=== PATIENT | female | born 1950 | race Caucasian/White ===

== ENCOUNTER 2022-09-27 08:44 | Day surgery (SDC) | payer MEDICARE, OTHER ==
[2022-09-26 11:29] LABS: BASOPHILS # (AUTO) 0.1 X10'3 (0-0.2); BASOPHILS % (AUTO) 1.3 % (0-1); EOSINOPHILS # (AUTO) 0.3 X10'3 (0-0.9); EOSINOPHILS % (AUTO) 3.8 % (0-6); HEMATOCRIT 43.6 % (35.0-45.0); HEMOGLOBIN 14.7 g/dl (12.0-16.0); LYMPHOCYTES # (AUTO) 1.3 X10'3 (1.1-4.8); LYMPHOCYTES % (AUTO) 17.4 % (21-51); MEAN CORPUSCULAR HEMOGLOBIN 30.4 PG (27.0-31.0); MEAN CORPUSCULAR HGB CONC 33.7 g/dL (33.0-36.5); MEAN CORPUSCULAR VOLUME 90.2 FL (78-98); MEAN PLATELET VOLUME 8.4 FL (7.4-10.4); MONOCYTES # (AUTO) 0.5 X10'3 (0-0.9); MONOCYTES % (AUTO) 6.7 % (2-12); NEUTROPHILS # (AUTO) 5.2 X10'3 (1.8-7.7); NEUTROPHILS % (AUTO) 70.8 % (42-75); PLATELET COUNT 273 X10'3 (140-440); RED BLOOD COUNT 4.84 X10'6 (4.20-5.60); RED CELL DISTRIBUTION WIDTH 12.5 % (11.5-14.5); WHITE BLOOD COUNT 7.4 X10'3 (4.5-11.0)
[2022-09-26 12:00] LABS: APTT 26 SECONDS (22-32); PROTHROMBIN TIME 10.3 SECONDS (9.0-12.0)
[2022-09-26 12:13] LABS: ALANINE AMINOTRANSFERASE 31 U/L (12-78); ALBUMIN 3.5 G/DL (3.4-5.0); ALKALINE PHOSPHATASE 63 IU/L (46-116); ANION GAP 10 (8-16); ASPARTATE AMINO TRANSFERASE 21 U/L (10-37); BILIRUBIN,TOTAL 0.5 MG/DL (0.1-1.0); BLOOD UREA NITROGEN 18 MG/DL (7-18); BUN/CREATININE RATIO 23.7 (10.0-20.0); CHLORIDE 105 MMOL/L (99-107); CREATININE 0.76 MG/DL (0.40-0.90); GLUCOSE 136 MG/DL (70-104); POTASSIUM 3.9 MMOL/L (3.5-5.1); SODIUM 140 MMOL/L (135-145); TOTAL CARBON DIOXIDE 25.1 MMOL/L (24-32); eGFR 75 ML/MIN
[2022-09-27] VITALS (12 sets, daily range): BP systolic 135–178; BP diastolic 65–94; PULSE 68–84; RESP 14–17; TEMP 97.9; O2SAT 93–95
[~2022-09-27] VITALS: Ht 167.6 cm; Wt 91.8 kg
[~2022-09-27 08:44] MED LIST: ALPR-624 PO; GABA-532 PO; IRON PO; LISI1TAB49 PO; LOVA20TA2 PO; MULT-620 PO; OMEP20CA15 PO; PREG50CA PO; VIT B12 PO
[2022-09-27] MEDS ORDERED: normal saline 1,000 ML IV SCH (09:10)
[2022-09-27] MEDS ORDERED: LORazepam 0.5 MG tablet PO PRN (09:10)
[2022-09-27] MEDS ORDERED: diphenhydrAMINE 25mg capsule PO PRN (09:10)
[2022-09-27] MEDS ORDERED: AMLO10TA13 PO (09:47)
[2022-09-27] MEDS ORDERED: ATOR20TA66 PO (09:47)
[2022-09-27] MEDS ORDERED: OMEG100037 PO (09:47)
[2022-09-27] MEDS ORDERED: ERGO400C PO (09:47)
[2022-09-27] MEDS ORDERED: ALBU8HFA PO (09:47)
[2022-09-27] MEDS ORDERED: OSC500T PO (09:47)
[2022-09-27] MEDS ORDERED: ACET-1025 PO (09:47)
[2022-09-27] MEDS ORDERED: FLUT15.87 NAS (09:47)
[2022-09-27] MEDS ORDERED: MAGN250T11 PO (09:47)
[2022-09-27] MEDS ORDERED: LOSA1TAB41 PO (09:47)
[2022-09-27] MEDS ORDERED: iohexol 350MG/ML 100ml bottle IV ONE (10:37)
[2022-09-27] MEDS ORDERED: LIDOcaine 1% (10mg/ml)w/preservative inj. 20ml MDV ONE (10:37)
[2022-09-27] MEDS ORDERED: fentaNYL/PF 50MCG/1 ML 2ML syringe ONE (10:37)
[2022-09-27] MEDS ORDERED: midazolam 1 mg/ML 2ml injection ONE ×2 (10:37→11:29)
[2022-09-27] MEDS ORDERED: iohexol 350 MG/ML 50ML vial IV ONE ×2 (10:37→11:24)
[2022-09-27] MEDS ORDERED: ondansetron/PF 4mg/2ml inj IV PRN (12:45)
[2022-09-27] MEDS ORDERED: normal saline 1000ml 1,000 ML IV SCH (12:45)
[2022-09-27] MEDS ORDERED: HYDROcodone/acetaminophen 5mg/325mg tablet PO PRN (12:45)
[2022-09-27] MEDS ORDERED: HYDROcodone/acetaminophen 10/325mg tab PO PRN (12:45)
[2022-09-27] MEDS ORDERED: OXAZEpam 15mg capsule PO PRN (12:45)
[2022-09-27] MEDS ORDERED: nitroGLYCERIN 0.4mg SUBLingual tab SL PRN (12:45)
[2022-09-27] MEDS ORDERED: proCHLORperazine 10 MG/2 ml inj IV PRN (12:45)
[2022-10-05] MEDS ORDERED: ZOLE5INF7 IV (13:10)
== END 2022-09-27 18:00 | disposition home or self-care (01) ==
LOC: SSTAY O 08:44
PROVIDERS: ATTEND Internal Medicine Cardiovascular Disease
DX: R94.39 Abnormal result of other cardiovascular function study (principal); R07.89 Other chest pain; I25.10 Atherosclerotic heart disease of native coronary artery without angina pectoris; J44.9 Chronic obstructive pulmonary disease, unspecified; I10 Essential (primary) hypertension; E78.5 Hyperlipidemia, unspecified; M19.90 Unspecified osteoarthritis, unspecified site; F32.A Depression, unspecified; K21.9 Gastro-esophageal reflux disease without esophagitis; Z91.048 Other nonmedicinal substance allergy status; Z98.890 Other specified postprocedural states; Z87.891 Personal history of nicotine dependence; Z79.899 Other long term (current) drug therapy
CPT/HCPCS: 36415; 71046; 71250; 80053; 85025; 85610; 85730; 93458; 93880; 93970; 99152; J1644; J2250; J3010; J3490; J7030; Q0163; Q9967; 99153; A4615; A6258; C1760

== ENCOUNTER 2022-10-06 05:29 | Inpatient (IN) | payer MEDICARE, OTHER ==
[2022-10-05 13:56] LABS: BASOPHILS # (AUTO) 0.1 X10'3 (0-0.2); BASOPHILS % (AUTO) 0.6 % (0-1); EOSINOPHILS # (AUTO) 0.3 X10'3 (0-0.9); EOSINOPHILS % (AUTO) 2.9 % (0-6); LYMPHOCYTES # (AUTO) 1.4 X10'3 (1.1-4.8); LYMPHOCYTES % (AUTO) 15.9 % (21-51); MEAN CORPUSCULAR HEMOGLOBIN 30.9 PG (27.0-31.0); MEAN PLATELET VOLUME 8.4 FL (7.4-10.4); MONOCYTES # (AUTO) 0.7 X10'3 (0-0.9); MONOCYTES % (AUTO) 7.8 % (2-12); NEUTROPHILS # (AUTO) 6.4 X10'3 (1.8-7.7); NEUTROPHILS % (AUTO) 72.8 % (42-75); PRE OP HEMATOCRIT 43.4 % (35.0-45.0); PRE OP HEMOGLOBIN 14.8 g/dL (12.0-16.0); PRE OP PLATELET COUNT 314 X10'3 (140-440); PRE OP WHITE BLOOD COUNT 8.7 10'3 (4.8-10.8); RED BLOOD COUNT 4.77 X10'6 (4.20-5.60); RED CELL DISTRIBUTION WIDTH 12.6 % (11.5-14.5)
[2022-10-05 13:59] LABS: BILIRUBIN,URINE NEGATIVE (Neg); CLARITY,URINE CLEAR (Clear); COLOR,URINE YELLOW (Yellow); GLUCOSE, URINE NEGATIVE (Neg); KETONES,URINE NEGATIVE (Neg); LEUKOCYTE ESTERASE ,URINE NEGATIVE (Neg); NITRITES, URINE NEGATIVE (Neg); OCCULT BLOOD,URINE NEGATIVE (Neg); PROTEIN,URINE NEGATIVE (Neg); UROBILINOGEN,URINE 0.2 E.U/dL (0.2-1.0)
[2022-10-05 14:05] LABS: UA COLLECTION TYPE CLN CATCH MIDSTREAM
[2022-10-05 14:07] LABS: PRE OP PROTIME 10.4 SECONDS (9.0-12.0)
[2022-10-05 16:42] LABS: ALBUMIN/GLOBULIN RATIO 1.1 (1.1-1.5); ALKALINE PHOSPHATASE 71 IU/L (46-116); BLOOD UREA NITROGEN 30 MG/DL (7-18); BUN/CREATININE RATIO 29.4 (10.0-20.0); CALCIUM 9.9 MG/DL (8.5-10.1); CHLORIDE 100 MMOL/L (99-107); CREATININE 1.02 MG/DL (0.40-0.90); PRE OP ALT 33 U/L (30-65); PRE OP ANION GAP 9 (8-16); PRE OP AST 21 U/L (10-37); PRE OP BILIRUB, TOTAL 0.4 MG/DL (0.0-1.0); PRE OP GLUCOSE 136 MG/DL (70-104); PRE OP POTASSIUM 3.8 MMOL/L (3.4-5.1); PRE OP SODIUM 136 MMOL/L (135-145); TOTAL CARBON DIOXIDE 26.7 MMOL/L (24-32); TOTAL PROTEIN 7.5 G/DL (6.4-8.2); eCRCL 47 ML/MIN; eGFR 53 ML/MIN
[2022-10-06] VITALS (22 sets, daily range): BP systolic 104–140; BP diastolic 38–71; PULSE 70–85; RESP 14–30; TEMP 97.6; O2SAT 90–100
[~2022-10-06] VITALS: Ht 167.6 cm; Wt 98.5 kg
[~2022-10-06 05:29] MED LIST changes: +ACET-1025 PO; +ALBU8HFA PO; -ALPR-624 PO; +AMLO10TA13 PO; +ERGO400C PO; +FLUT15.87 NAS; -GABA-532 PO; -LISI1TAB49 PO; +LOSA1TAB41 PO; +MAGN250T11 PO; +OMEG100037 PO; -OMEP20CA15 PO; +OSC500T PO; -PREG50CA PO; -VIT B12 PO; +ZOLE5INF7 IV; +ringers solution, lacted 1,000 ML IV SCH
[2022-10-06] MEDS ORDERED: vancomycin 1,500 MG in NS 300ml IV soln IV ONE (05:30)
[2022-10-06] MEDS ORDERED: famotidine 20mg tablet PO ONE (05:30)
[2022-10-06] MEDS ORDERED: mupirocin 2% nasal ointment 1gm UD NS ONE (05:30)
[2022-10-06] MEDS ORDERED: cefazolin 2gm/D5W 100mL 100 ML IV ONE (05:30)
[2022-10-06] MEDS ORDERED: LORazepam 2 mg/ml vial IV ONE (05:30)
[2022-10-06] MEDS ORDERED: dextrose 50%-water 50ml dispensing syringe IV PRN ×2 (06:35→12:25)
[2022-10-06] MEDS ORDERED: insulin glargine (Lantus) pen - multi-dose SQ PRN ×2 (06:35→12:25)
[2022-10-06] MEDS ORDERED: epiNEPHrine 1 mg/ml inj ONE (06:40)
[2022-10-06] MEDS ORDERED: BUPIVAcaine/PF 2.5 mg/ml (0.25%) 30ml vial ONE (06:40)
[2022-10-06] MEDS ORDERED: ceFAZolin 1000mg inj ONE (06:40)
[2022-10-06] MEDS ORDERED: MIDAZolam 1 MG/ML 5ML VIAL ONE (07:45)
[2022-10-06] MEDS ORDERED: sevoflurane 250ml liquid IH ONE (07:47)
[2022-10-06] MEDS ORDERED: propofol 10mg/ml 20ml vial IV ONE (07:47)
[2022-10-06] MEDS ORDERED: rocuronium 10mg/ml inj IV ONE (07:47)
[2022-10-06] MEDS ORDERED: protamine sulf. 10mg/ml inj. IV ONE (07:47)
[2022-10-06] MEDS ORDERED: SUfentanil 50mcg/ml 1ml amp IV ONE (07:50)
[2022-10-06] MEDS ORDERED: albumin (human) 25% 100 ML IV solution IV ONE (08:00)
[2022-10-06] MEDS ORDERED: sodium bicarbonate (8.4%) 1 mEq/ml syringe ONE (08:00)
[2022-10-06] MEDS ORDERED: LIDOcaine 2% (20 mg/ml) 5ml cardiac syringe ONE (08:00)
[2022-10-06] MEDS ORDERED: heparin 10,000 units/1 ML INJ ONE (08:00)
[2022-10-06] MEDS ORDERED: calcium chloride 100 MG/1 ML inj IV ONE (08:00)
[2022-10-06] MEDS ORDERED: BARIUM SULFATE 340 ML SUSP.RECON***PROCEDURE AREA ONLY**DONT ENTER PO ONE (08:00)
[2022-10-06] MEDS ORDERED: potassium Cl 2 mEq/ml inj IV ONE (08:00)
[2022-10-06] MEDS ORDERED: aminocaproic acid 250 MG/1 ML inj. ONE (08:00)
[2022-10-06] MEDS ORDERED: NORepinephrine 1 mg/ml inj IV ONE (08:00)
[2022-10-06] MEDS ORDERED: methylPREDNISolone sod succ 1000mg vial ONE (08:00)
[2022-10-06] MEDS ORDERED: MAGNESIUM SULFATE 4 MEQ/ML (5gm/10ml) injection ONE (08:00)
[2022-10-06] MEDS ORDERED: mannitol 12.5gm/50mL VIAL IV ONE (08:00)
[2022-10-06] MEDS ORDERED: heparin 1,000 units/ml 10ml inj ONE (08:00)
[2022-10-06 08:33] LABS: ABG BASE EXCESS -2.1 mmol/L (-2.0-2.0); ABG HCO3 22.1 mmol/L (22.0-26.0); ABG OXYGEN SATURATION 97.9 % (94-97); ABG PCO2 36.3 mmHg (32.0-45.0); ABG PH 7.403 (7.350-7.450); ABG PO2 120.2 mmHg (75.0-100.0); CL (ABG) 106 mmol/L (99-107); FCOHb 0.3 % (0.0-3.9); FHHb 2.1 % (0.0-5.0); FMetHb 0.3 % (0.0-1.5); FO2Hb 97.3 % (94-97); GLUCOSE (ABG) 169 mg/dl (70-104); IONIZED CA (ABG) 1.15 mmol/L (1.10-1.30); K (ABG) 4.1 mmol/L (3.5-5.1); TOTAL HEMOGLOBIN 12.6 G/dl (12.0-16.0)
[2022-10-06 10:10] LABS: ABG BASE EXCESS -1.8 mmol/L (-2.0-2.0); ABG HCO3 23.1 mmol/L (22.0-26.0); ABG OXYGEN SATURATION 98.7 % (94-97); ABG PCO2 39.7 mmHg (32.0-45.0); ABG PH 7.383 (7.350-7.450); ABG PO2 304.6 mmHg (75.0-100.0); CL (ABG) 106 mmol/L (99-107); FCOHb 0.2 % (0.0-3.9); FHHb 1.3 % (0.0-5.0); FMetHb 0.3 % (0.0-1.5); FO2Hb 98.2 % (94-97); GLUCOSE (ABG) 148 mg/dl (70-104); IONIZED CA (ABG) 1.05 mmol/L (1.10-1.30); K (ABG) 4.6 mmol/L (3.5-5.1); TOTAL HEMOGLOBIN 10.1 G/dl (12.0-16.0)
[2022-10-06 10:34] LABS: ABG BASE EXCESS VENOUS -3.5 mmol/L (-2.0 - 2.0); ABG OXYGEN SATURATION VENOUS 84.6 % (75 - 99 %); ABG PCO2 VENOUS 41.6 mmHg (38.0-51.0); ABG PH (VENOUS) 7.342 (7.310-7.450); CL (ABG) 106 mmol/L (99-107); FCOHb VENOUS 0.3 % (0.0- 3.9); FHHb VENOUS 15.3 %; FMetHb VENOUS 0.3 % (0.0 - 0.5); FO2Hb VENOUS 84.1 %; GLUCOSE (ABG) 173 mg/dl (70-104); IONIZED CA (ABG) 1.08 mmol/L (1.10-1.30); K (ABG) 4.3 mmol/L (3.5-5.1); TOTAL HEMOGLOBIN 10.4 G/dl (12.0-16.0)
[2022-10-06 11:06] LABS: ABG BASE EXCESS -5.2 mmol/L (-2.0-2.0); ABG HCO3 20.6 mmol/L (22.0-26.0); ABG OXYGEN SATURATION 98.5 % (94-97); ABG PCO2 41.2 mmHg (32.0-45.0); ABG PH 7.317 (7.350-7.450); ABG PO2 334.5 mmHg (75.0-100.0); CL (ABG) 104 mmol/L (99-107); FCOHb 0.2 % (0.0-3.9); FHHb 1.5 % (0.0-5.0); FMetHb 0.3 % (0.0-1.5); GLUCOSE (ABG) 180 mg/dl (70-104); IONIZED CA (ABG) 1.51 mmol/L (1.10-1.30); K (ABG) 4.1 mmol/L (3.5-5.1); TOTAL HEMOGLOBIN 9.6 G/dl (12.0-16.0)
[2022-10-06 11:28] LABS: ABG HCO3 VENOUS 24.5 mmol/L (21.0-28.0); ABG OXYGEN SATURATION VENOUS 67.9 % (75 - 99 %); ABG PCO2 VENOUS 50.2 mmHg (38.0-51.0); ABG PH (VENOUS) 7.307 (7.310-7.450); ABG PO2 VENOUS 37.1 mmHg (25.0-35.0); CL (ABG) 106 mmol/L (99-107); FCOHb VENOUS 0.3 % (0.0- 3.9); FHHb VENOUS 31.9 %; FMetHb VENOUS 0.3 % (0.0 - 0.5); FO2Hb VENOUS 67.5 %; GLUCOSE (ABG) 175 mg/dl (70-104); IONIZED CA (ABG) 1.26 mmol/L (1.10-1.30); K (ABG) 4.1 mmol/L (3.5-5.1); TOTAL HEMOGLOBIN 9.8 G/dl (12.0-16.0)
[2022-10-06 11:31] LABS: ACTIVATED CLOTTING TIME 122 SEC (101-148)
[2022-10-06] MEDS ORDERED: sodium phosphate inj. 30 MMOL in dextrose 5%-water 250 ML IV PRN (12:25)
[2022-10-06] MEDS ORDERED: ondansetron/PF 4mg/2ml inj IV PRN (12:25)
[2022-10-06] MEDS ORDERED: potassium Cl 40MEQ/270ML bag 250 ML IV PRN (12:25)
[2022-10-06] MEDS ORDERED: magnesium 2GM in 50ml NS 50 ML IV PRN (12:25)
[2022-10-06] MEDS ORDERED: Neutra Phos packet PO PRN (12:25)
[2022-10-06] MEDS ORDERED: Insulin Reg/NS 100units/100mL 100 ML IV SCH (12:25)
[2022-10-06] MEDS ORDERED: magnesium 4gm in 100ml NS 100 ML IV PRN (12:25)
[2022-10-06] MEDS ORDERED: acetaminophen 325mg tablet PO PRN ×2 (12:25)
[2022-10-06] MEDS ORDERED: bisacodyl 10mg suppository rectal RC PRN (12:25)
[2022-10-06] MEDS: sodium chloride 0.45% 1,000 ML IV SCH (12:25)
[2022-10-06] MEDS ORDERED: potassium Cl 20 mEq SR tablet PO PRN (12:25)
[2022-10-06] MEDS ORDERED: normal saline 250ml IV soln 250 ML IV PRN (12:25)
[2022-10-06] MEDS ORDERED: potassium CL 10mEq/100ml bag 100 ML IV PRN (12:25)
[2022-10-06] MEDS ORDERED: niCARDipine-NS 40mg/200ml IVPB 200 ML IV PRN (12:25)
[2022-10-06] MEDS ORDERED: nitroGLYCERIN-Tridil 50MG/D5W 250 ML IV PRN (12:25)
[2022-10-06] MEDS ORDERED: potassium Cl 40MEQ/1/2NS 520ml 520 ML IV PRN (12:25)
[2022-10-06] MEDS ORDERED: sodium phosphate inj. 15 MMOL in dextrose 5%-water 250 ML IV PRN (12:25)
[2022-10-06] MEDS ORDERED: metoclopramide 5 mg/ml inj IV PRN (12:25)
[2022-10-06] MEDS ORDERED: magnesium hydroxide 30ml (MOM) UD suspension PO PRN (12:25)
[2022-10-06] MEDS ORDERED: mineral oil 133ml enema RC PRN (12:25)
--- NOTE | 2022-10-06 12:30 | NUR ---
Received to room 2015, accompanied by Yoana Novak and surgical crew. Placed on ventilator, to air sampling and monitoring, arterial line and PA line pressure zeroed & monitored. Chest tubes to suction at 20 cm. Reid cath to gravity drainage. Dressings are dry and intact. See assessment record. All vasoactive drugs are infusing via central line. EKG &B chest xray taken & reviewed by Trav.
[2022-10-06] MEDS: NORepinephrine 8mg/ 250ml NS 250 ML IV SCH (12:40)
--- NOTE | 2022-10-06 13:00 | NUR ---
Radiology call Radiologist called that OG was in pts right main stem. OG was removed. Dr. Lees came to verify shortly after and Dr. Alas came about 1500 and asked not to place OG as pt was closer to extubation.
[2022-10-06 13:02] LABS: ABG BASE EXCESS -3.4 mmol/L (-2.0-2.0); ABG HCO3 21.9 mmol/L (22.0-26.0); ABG OXYGEN SATURATION 97.3 % (94-97); ABG PCO2 (T) 39.2 mmHg (32.0-45.0); ABG PH (T) 7.362 (7.350-7.450); ABG PO2 (T) 98.4 mmHg (75.0-100.0); FCOHb 0.7 % (0.0-3.9); FHHb 2.7 % (0.0-5.0); FMetHb 0.3 % (0.0-1.5); FO2Hb 96.3 % (94-97); MODE VENT - AC/PRVC; PATIENT TEMPERATURE 36.3; PEEP 5 cm H2O; RESPIRATORY RATE 14 b/min; TIDAL VOLUME 500 mL; TOTAL HEMOGLOBIN 14.1 G/dl (12.0-16.0)
[2022-10-06 13:03] LABS: BASOPHILS % (AUTO) 0.1 % (0-1); EOSINOPHILS # (AUTO) 0.1 X10'3 (0-0.9); EOSINOPHILS % (AUTO) 0.7 % (0-6); HEMATOCRIT 38.5 % (35.0-45.0); HEMOGLOBIN 12.7 g/dl (12.0-16.0); LYMPHOCYTES # (AUTO) 1.1 X10'3 (1.1-4.8); LYMPHOCYTES % (AUTO) 5.7 % (21-51); MEAN CORPUSCULAR HEMOGLOBIN 30.2 PG (27.0-31.0); MEAN CORPUSCULAR VOLUME 91.4 FL (78-98); MEAN PLATELET VOLUME 8.5 FL (7.4-10.4); MONOCYTES # (AUTO) 0.7 X10'3 (0-0.9); MONOCYTES % (AUTO) 3.5 % (2-12); NEUTROPHILS # (AUTO) 17.7 X10'3 (1.8-7.7); PLATELET COUNT 178 X10'3 (140-440); RED BLOOD COUNT 4.21 X10'6 (4.20-5.60); RED CELL DISTRIBUTION WIDTH 12.9 % (11.5-14.5); WHITE BLOOD COUNT 19.7 X10'3 (4.5-11.0)
[2022-10-06 13:12] LABS: APTT 27 SECONDS (22-32); FIBRINOGEN 277 MG/DL (177-424); INR 1.1 INR; PROTHROMBIN TIME 11.5 SECONDS (9.0-12.0)
[2022-10-06 13:17] LABS: ALANINE AMINOTRANSFERASE 17 U/L (12-78); ALBUMIN 2.5 G/DL (3.4-5.0); ALBUMIN/GLOBULIN RATIO 1.2 (1.1-1.5); ALKALINE PHOSPHATASE 35 IU/L (46-116); ANION GAP 10 (8-16); BILIRUBIN,TOTAL 0.4 MG/DL (0.1-1.0); BLOOD UREA NITROGEN 18 MG/DL (7-18); BUN/CREATININE RATIO 20.5 (10.0-20.0); CHLORIDE 113 MMOL/L (99-107); CREATININE 0.88 MG/DL (0.40-0.90); GLUCOSE 143 MG/DL (70-104); MAGNESIUM 2.7 MG/DL (1.5-2.4); SODIUM 145 MMOL/L (135-145); TOTAL CARBON DIOXIDE 22.1 MMOL/L (24-32); TOTAL PROTEIN 4.6 G/DL (6.4-8.2); eCRCL 54 ML/MIN; eGFR 63 ML/MIN
[2022-10-06 13:19] LABS: ASPARTATE AMINO TRANSFERASE 44 U/L (10-37); PHOSPHORUS 2.4 MG/DL (2.3-4.5); POTASSIUM 3.9 MMOL/L (3.5-5.1)
[2022-10-06 13:42] LABS: PLATELET ESTIMATE NORMAL; TOTAL CELLS COUNTED 100
[2022-10-06] MEDS: Insulin Reg/NS 100units/100mL 100 ML IV SCH (13:57)
[2022-10-06] MEDS: acetaminophen 1,000mg/100ml IV 100 ML IV SCH ×2 (14:05→19:54)
[2022-10-06] MEDS: potassium Cl 20mEq/100mL bag 100 ML IV PRN ×2 (14:22→15:42)
[2022-10-06] MEDS: albumin (Human) 5% 250ml 250 ML IV PRN ×2 (14:51→16:09)
--- NOTE | 2022-10-06 14:54 | NUR ---
Nutrition consult: Per EMR pt remains intubated s/p coronary revascularization and endoscopic vein harvesting today. Pt would benefit from nutrition therapy education as appropriate following extubation. Will continue to follow. Addendum: 10/06/22 at [address] Amended: Links added.
[2022-10-06] MEDS: ceFAZolin/D5W- 1GM premix 50 ML IV SCH (16:08)
[2022-10-06] MEDS: morphine 2 MG/ML inj. syringe IV PRN ×5 (16:32→23:20)
[2022-10-06] MEDS ORDERED: albuterol 2.5 MG/3 ML nebule NEB PRN (17:00)
--- NOTE | 2022-10-06 17:39 | NUR ---
Shift note Pts daughter, son and grandson came to see pt. Daughter here when pt was extubated. Pt complains of pain at left upper chest. Explained it was likely due to the chest tube to both pt and daughter. Pts vitals were trending down. notified and order for albumin received and followed with improved vital. Pt extubated after passing weaning parameters about 1630. Dr. Alas notified. Also notified of sucking sound coming from center chest tube. Pinching that tube silenced the sucking sound. Dressing removed, petroleum gauze placed around that tube but leak persisted. 4x4 placed under chest tubes per Dr. Alas request and he visited post extubation. Orders received for resp treatments as pt has asthma and uses an inhaler at home Positioned in bed to more comfort.
--- NOTE | 2022-10-06 18:28 | NUR ---
Problems reprioritized. Patient report given, questions answered & plan of care reviewed with Eden DUMONT.
[2022-10-06] MEDS: HYDROcodone/acetaminophen 5mg/325mg tablet PO PRN ×2 (18:49→23:19)
[2022-10-06 19:06] LABS: BASOPHILS % (AUTO) 0.1 % (0-1); EOSINOPHILS % (AUTO) 0 % (0-6); HEMATOCRIT 37.9 % (35.0-45.0); HEMOGLOBIN 12.4 g/dl (12.0-16.0); LYMPHOCYTES # (AUTO) 0.3 X10'3 (1.1-4.8); LYMPHOCYTES % (AUTO) 1.4 % (21-51); MEAN CORPUSCULAR HEMOGLOBIN 30.1 PG (27.0-31.0); MEAN CORPUSCULAR HGB CONC 32.9 g/dL (33.0-36.5); MEAN CORPUSCULAR VOLUME 91.6 FL (78-98); MEAN PLATELET VOLUME 8.7 FL (7.4-10.4); MONOCYTES # (AUTO) 0.5 X10'3 (0-0.9); MONOCYTES % (AUTO) 2.5 % (2-12); PLATELET COUNT 204 X10'3 (140-440); RED BLOOD COUNT 4.14 X10'6 (4.20-5.60); WHITE BLOOD COUNT 18.8 X10'3 (4.5-11.0)
[2022-10-06 19:18] LABS: ALBUMIN 3.4 G/DL (3.4-5.0); ANION GAP 12 (8-16); BLOOD UREA NITROGEN 21 MG/DL (7-18); BUN/CREATININE RATIO 18.1 (10.0-20.0); CALCIUM 8.7 MG/DL (8.5-10.1); CHLORIDE 112 MMOL/L (99-107); CREATININE 1.16 MG/DL (0.40-0.90); GLUCOSE 176 MG/DL (70-104); MAGNESIUM 2.4 MG/DL (1.5-2.4); PHOSPHORUS 2.5 MG/DL (2.3-4.5); POTASSIUM 4.5 MMOL/L (3.5-5.1); SODIUM 144 MMOL/L (135-145); TOTAL CARBON DIOXIDE 20.4 MMOL/L (24-32); eGFR 46 ML/MIN
[2022-10-06] MEDS: mupirocin 2% nasal ointment 1gm UD NS SCH (19:54)
[2022-10-06] MEDS: sennosides/docusate sodium tablet PO SCH (19:54)
[2022-10-06] MEDS: vancomycin/NS 1 GM ADD-VANTAGE 250 ML IV SCH (19:54)
[2022-10-06] MEDS: ipratropium/albuterol 3ml nebule NEB SCH (20:12)
[2022-10-06] MEDS: atorvastatin 10mg tablet PO SCH (21:36)
[2022-10-07] VITALS (29 sets, daily range): BP systolic 106–146; BP diastolic 44–72; PULSE 76–94; RESP 14–28; O2SAT 86–93
[2022-10-07] MEDS: ceFAZolin/D5W- 1GM premix 50 ML IV SCH ×4 (00:08→23:41)
[2022-10-07] MEDS: acetaminophen 1,000mg/100ml IV 100 ML IV SCH ×2 (02:02→08:24)
[2022-10-07 03:03] LABS: APTT 27 SECONDS (22-32); PROTHROMBIN TIME 10.7 SECONDS (9.0-12.0)
[2022-10-07] MEDS: ipratropium/albuterol 3ml nebule NEB SCH ×4 (03:03→20:55)
[2022-10-07 03:05] LABS: BASOPHILS % (AUTO) 0.1 % (0-1); EOSINOPHILS % (AUTO) 0 % (0-6); HEMATOCRIT 36.1 % (35.0-45.0); HEMOGLOBIN 11.9 g/dl (12.0-16.0); LYMPHOCYTES # (AUTO) 0.4 X10'3 (1.1-4.8); LYMPHOCYTES % (AUTO) 2.2 % (21-51); MEAN CORPUSCULAR HEMOGLOBIN 30.4 PG (27.0-31.0); MEAN CORPUSCULAR VOLUME 92.2 FL (78-98); MEAN PLATELET VOLUME 9.4 FL (7.4-10.4); MONOCYTES # (AUTO) 0.4 X10'3 (0-0.9); MONOCYTES % (AUTO) 2.1 % (2-12); NEUTROPHILS # (AUTO) 17.4 X10'3 (1.8-7.7); NEUTROPHILS % (AUTO) 95.6 % (42-75); PLATELET COUNT 147 X10'3 (140-440); RED BLOOD COUNT 3.91 X10'6 (4.20-5.60); RED CELL DISTRIBUTION WIDTH 13.2 % (11.5-14.5); WHITE BLOOD COUNT 18.3 X10'3 (4.5-11.0)
[2022-10-07 03:12] LABS: ALANINE AMINOTRANSFERASE 21 U/L (12-78); ALBUMIN 3.3 G/DL (3.4-5.0); ALBUMIN/GLOBULIN RATIO 1.5 (1.1-1.5); ALKALINE PHOSPHATASE 38 IU/L (46-116); ANION GAP 8 (8-16); ASPARTATE AMINO TRANSFERASE 48 U/L (10-37); BILIRUBIN,TOTAL 0.3 MG/DL (0.1-1.0); BLOOD UREA NITROGEN 20 MG/DL (7-18); BUN/CREATININE RATIO 23.5 (10.0-20.0); CALCIUM 8.4 MG/DL (8.5-10.1); CHLORIDE 110 MMOL/L (99-107); CREATININE 0.85 MG/DL (0.40-0.90); GLUCOSE 168 MG/DL (70-104); MAGNESIUM 2.3 MG/DL (1.5-2.4); PHOSPHORUS 3.8 MG/DL (2.3-4.5); POTASSIUM 4.8 MMOL/L (3.5-5.1); SODIUM 141 MMOL/L (135-145); TOTAL CARBON DIOXIDE 23.1 MMOL/L (24-32); TOTAL PROTEIN 5.5 G/DL (6.4-8.2); eCRCL 56 ML/MIN; eGFR 66 ML/MIN
[2022-10-07] MEDS: Insulin Reg/NS 100units/100mL 100 ML IV SCH (04:07)
[2022-10-07] MEDS: morphine 2 MG/ML inj. syringe IV PRN ×5 (04:24→17:09)
[2022-10-07] MEDS: HYDROcodone/acetaminophen 5mg/325mg tablet PO PRN ×3 (06:02→20:16)
--- NOTE | 2022-10-07 06:40 | NUR ---
Problems reprioritized. Patient report given, questions answered & plan of care reviewed with RENETTA DUMONT.
[2022-10-07] MEDS ORDERED: insulin Lispro (HumaLOG) vial - multi-dose SQ SCH (08:00)
[2022-10-07] MEDS: vancomycin/NS 1 GM ADD-VANTAGE 250 ML IV SCH ×2 (08:19→20:15)
[2022-10-07] MEDS: aspirin 81mg tab.chew PO SCH (08:32)
[2022-10-07] MEDS: sennosides/docusate sodium tablet PO SCH ×2 (08:33→20:16)
[2022-10-07] MEDS: mupirocin 2% nasal ointment 1gm UD NS SCH ×2 (08:46→20:13)
--- NOTE | 2022-10-07 09:52 | NUR ---
Per EMR pt with T2DM, well controlled for age with A1c 7.0%. DM education not warranted at this time. Will continue to follow and provide post CABG nutrition therapy education as appropriate. Addendum: 10/07/22 at [address] Amended: Links added.
[2022-10-07] MEDS ORDERED: furosemide 20 MG/2 ML vial IV ONE (11:15)
[2022-10-07] MEDS ORDERED: glucagon, human recombinant 1mg kit SUBCUT PRN (12:30)
[2022-10-07] MEDS ORDERED: dextrose 50%-water 50ml dispensing syringe IV PRN ×2 (12:30)
[2022-10-07] MEDS ORDERED: DEXTROSE 15 GM of carb/4 tabs (each vial/BOTTLE has 4 tablets) PO PRN ×2 (12:30)
[2022-10-07] MEDS: ketorolac tromethamine 15mg/ml inj. IM SCH ×2 (13:13→20:15)
[2022-10-07] MEDS: atorvastatin 10mg tablet PO SCH (20:15)
[2022-10-08] VITALS (30 sets, daily range): BP systolic 99–143; BP diastolic 50–75; PULSE 8–91; RESP 12–24; O2SAT 88–96
[2022-10-08] MEDS: ketorolac tromethamine 15mg/ml inj. IM SCH (01:56)
[2022-10-08] MEDS: HYDROcodone/acetaminophen 5mg/325mg tablet PO PRN ×3 (01:57→19:00)
[2022-10-08 03:02] LABS: BASOPHILS % (AUTO) 0.1 % (0-1); EOSINOPHILS % (AUTO) 0 % (0-6); HEMATOCRIT 33.6 % (35.0-45.0); HEMOGLOBIN 11.2 g/dl (12.0-16.0); LYMPHOCYTES # (AUTO) 0.8 X10'3 (1.1-4.8); LYMPHOCYTES % (AUTO) 3.7 % (21-51); MEAN CORPUSCULAR HEMOGLOBIN 30.7 PG (27.0-31.0); MEAN CORPUSCULAR HGB CONC 33.2 g/dL (33.0-36.5); MEAN CORPUSCULAR VOLUME 92.4 FL (78-98); MEAN PLATELET VOLUME 9.5 FL (7.4-10.4); MONOCYTES # (AUTO) 0.9 X10'3 (0-0.9); MONOCYTES % (AUTO) 4.5 % (2-12); NEUTROPHILS # (AUTO) 19.5 X10'3 (1.8-7.7); NEUTROPHILS % (AUTO) 91.7 % (42-75); PLATELET COUNT 150 X10'3 (140-440); RED BLOOD COUNT 3.64 X10'6 (4.20-5.60); RED CELL DISTRIBUTION WIDTH 13.3 % (11.5-14.5); WHITE BLOOD COUNT 21.2 X10'3 (4.5-11.0)
[2022-10-08 03:03] LABS: ALBUMIN 2.8 G/DL (3.4-5.0); ANION GAP 7 (8-16); BLOOD UREA NITROGEN 27 MG/DL (7-18); BUN/CREATININE RATIO 30.7 (10.0-20.0); CALCIUM 8.3 MG/DL (8.5-10.1); CHLORIDE 106 MMOL/L (99-107); CREATININE 0.88 MG/DL (0.40-0.90); GLUCOSE 174 MG/DL (70-104); MAGNESIUM 2.5 MG/DL (1.5-2.4); POTASSIUM 4.9 MMOL/L (3.5-5.1); SODIUM 139 MMOL/L (135-145); TOTAL CARBON DIOXIDE 25.6 MMOL/L (24-32); eCRCL 54 ML/MIN; eGFR 63 ML/MIN
[2022-10-08] MEDS: ipratropium/albuterol 3ml nebule NEB SCH ×4 (03:33→21:15)
--- NOTE | 2022-10-08 06:27 | NUR ---
Problems reprioritized. Patient report given, questions answered & plan of care reviewed with DYLON DUMONT.
[2022-10-08] MEDS: morphine 2 MG/ML inj. syringe IV PRN ×3 (07:33→21:41)
[2022-10-08] MEDS: pantoprazole 40mg Tablet.DR PO SCH (09:03)
[2022-10-08] MEDS: mupirocin 2% nasal ointment 1gm UD NS SCH (09:04)
[2022-10-08] MEDS: sennosides/docusate sodium tablet PO SCH ×2 (09:04→09:11)
[2022-10-08] MEDS: ketorolac tromethamine 15mg/ml inj. IV SCH ×2 (09:04→19:01)
[2022-10-08] MEDS: aspirin 81mg tab.chew PO SCH (09:13)
[2022-10-08] MEDS: insulin Lispro (HumaLOG) vial - multi-dose SQ SCH ×3 (09:34→21:28)
[2022-10-08] MEDS: sodium chloride 0.45% 1,000 ML IV SCH (10:28)
[2022-10-08] MEDS: NORepinephrine 8mg/ 250ml NS 250 ML IV SCH (10:30)
--- NOTE | 2022-10-08 12:15 | NUR ---
F/u 10/08: Pt seen by CECY at bedside for written/verbal high protein/heart healthy diet eds w/ RD contact information provided. Pt PO 0-25% initial meals post-op is agreeable to Ensure Enlive TIDWM; PA notified. Pt requests soups/salads BIDLD, non-fat milk/decaf tea TIDWM since closer to home diet- dietary notified. Rec: 1. advance to heart healthy diet as medically indicated 2. soup/salad BIDLD, decaf tea/non-fat milk TIDWM per pt preferences 3. Ensure Enlive TIDWM; pending physician verification in EMR 4. routine bowel care 5. weekly wt Addendum: 10/08/22 at [address] Amended: Links added.
[2022-10-08] MEDS: lactose-reduced food (Ensure Enlive) - 237ml bottle PO SCH ×2 (13:00→17:55)
--- NOTE | 2022-10-08 17:21 | NUR ---
Left plural tube is out this afternoon, Two chest tubes remaining. Ambulating in halls 100 feet, up in chair for meals, Reid catheter is removed at 16:30. On oxygen at 5L NC working on IS at 500-750 level. Blood glucose monitoring currently at level 4, with last check reading 207.
[2022-10-08] MEDS: atorvastatin 10mg tablet PO SCH (19:01)
[2022-10-08] MEDS ORDERED: furosemide 20 MG/2 ML vial IV ONE (21:55)
[2022-10-09] VITALS (37 sets, daily range): BP systolic 106–144; BP diastolic 53–75; PULSE 61–88; RESP 12–26; O2SAT 92–97
[2022-10-09] MEDS: HYDROcodone/acetaminophen 5mg/325mg tablet PO PRN ×3 (01:46→17:59)
[2022-10-09] MEDS: ketorolac tromethamine 15mg/ml inj. IV SCH (01:46)
[2022-10-09 02:34] LABS: ALBUMIN 2.8 G/DL (3.4-5.0); ANION GAP 5 (8-16); BLOOD UREA NITROGEN 36 MG/DL (7-18); BUN/CREATININE RATIO 39.1 (10.0-20.0); CALCIUM 8.4 MG/DL (8.5-10.1); CHLORIDE 108 MMOL/L (99-107); CREATININE 0.92 MG/DL (0.40-0.90); GLUCOSE 149 MG/DL (70-104); MAGNESIUM 2.5 MG/DL (1.5-2.4); PHOSPHORUS 3.2 MG/DL (2.3-4.5); POTASSIUM 4.7 MMOL/L (3.5-5.1); SODIUM 140 MMOL/L (135-145); TOTAL CARBON DIOXIDE 26.7 MMOL/L (24-32); eCRCL 52 ML/MIN; eGFR 60 ML/MIN
[2022-10-09 02:41] LABS: BASOPHILS # (AUTO) 0.1 X10'3 (0-0.2); BASOPHILS % (AUTO) 0.3 % (0-1); EOSINOPHILS % (AUTO) 0 % (0-6); HEMATOCRIT 34.9 % (35.0-45.0); HEMOGLOBIN 11.4 g/dl (12.0-16.0); LYMPHOCYTES # (AUTO) 0.8 X10'3 (1.1-4.8); LYMPHOCYTES % (AUTO) 4.2 % (21-51); MEAN CORPUSCULAR HGB CONC 32.8 g/dL (33.0-36.5); MEAN CORPUSCULAR VOLUME 91.4 FL (78-98); MEAN PLATELET VOLUME 9.2 FL (7.4-10.4); MONOCYTES # (AUTO) 1.1 X10'3 (0-0.9); MONOCYTES % (AUTO) 5.7 % (2-12); NEUTROPHILS # (AUTO) 16.9 X10'3 (1.8-7.7); NEUTROPHILS % (AUTO) 89.8 % (42-75); PLATELET COUNT 175 X10'3 (140-440); RED BLOOD COUNT 3.82 X10'6 (4.20-5.60); RED CELL DISTRIBUTION WIDTH 13.3 % (11.5-14.5); WHITE BLOOD COUNT 18.9 X10'3 (4.5-11.0)
[2022-10-09] MEDS: ipratropium/albuterol 3ml nebule NEB SCH ×4 (03:49→20:57)
[2022-10-09] MEDS: morphine 2 MG/ML inj. syringe IV PRN (03:55)
--- NOTE | 2022-10-09 06:33 | NUR ---
Patient in room CICU 2014. I have received report from Lexis DUMONT and had the opportunity to ask questions and assume patient care.
[2022-10-09] MEDS ORDERED: ketorolac trometh. 30mg/ml inj. IV SCH (07:43)
[2022-10-09] MEDS: pantoprazole 40mg Tablet.DR PO SCH (07:51)
[2022-10-09] MEDS: lactose-reduced food (Ensure Enlive) - 237ml bottle PO SCH ×5 (07:52→19:55)
[2022-10-09] MEDS: sennosides/docusate sodium tablet PO SCH ×2 (07:52→20:46)
[2022-10-09] MEDS: aspirin 81mg tab.chew PO SCH (07:52)
[2022-10-09] MEDS: insulin Lispro (HumaLOG) vial - multi-dose SQ SCH ×3 (08:58→21:09)
--- NOTE | 2022-10-09 09:28 | NUR ---
UNABLE TO COMPLETE POST SVN TX ASSESSMENT. RT CALLED TO EMERGENT INTUBATION IN ER. RN ASKED TO REMOVE MASK AFTER 5 MINUTES, RN AT BEDSIDE. PATIENT SHOWING NO SIGNS OF SOB/DISTRESS Addendum: 10/09/22 at 0930 by Rosmery Shea RT Amended: Links added.
[2022-10-09] MEDS ORDERED: magnesium citrate 296ml oral solution PO ONE ×2 (09:55→12:30)
[2022-10-09] MEDS ORDERED: magnesium 2GM in 50ml NS 50 ML IV PRN (10:00)
[2022-10-09] MEDS ORDERED: potassium CL 10mEq/100ml bag 100 ML IV PRN (10:00)
[2022-10-09] MEDS ORDERED: potassium Cl 20 mEq SR tablet PO PRN ×2 (10:00)
[2022-10-09] MEDS ORDERED: potassium Cl 20mEq/100mL bag 100 ML IV PRN (10:00)
[2022-10-09] MEDS ORDERED: potassium Cl 40MEQ/1/2NS 520ml 520 ML IV PRN (10:00)
[2022-10-09] MEDS ORDERED: magnesium 4gm in 100ml NS 100 ML IV PRN (10:00)
[2022-10-09] MEDS ORDERED: potassium Cl 40MEQ/270ML bag 250 ML IV PRN (10:00)
[2022-10-09] MEDS: metoprolol tartrate 12.5mg (1/2 tablet) PO SCH ×2 (10:14→20:46)
--- NOTE | 2022-10-09 10:27 | NUR ---
CABG Consult: Addressed; see prior RD note. Addendum: 10/09/22 at [address] Amended: Links added.
--- NOTE | 2022-10-09 12:33 | NUR ---
Patients family brought patient outside food without checking with primary nurse. Family stated that the nurse yesterday said " she is pretty much on a regular diet and can eat whatever she wants" patient is on a carb/heart healthy no con sweets diet. Educated the patient and family on the importance of a tight glycemic control while patient is healing, patient is also diabetic
--- NOTE | 2022-10-09 12:36 | NUR ---
1200 blood sugar not checked due to patient eating food that family brought her
[2022-10-09] MEDS ORDERED: magnesium Cl slow-release 64mg tablet PO SCH (20:00)
[2022-10-09] MEDS ORDERED: amiodarone 150mg/dext, iso-os 100 ML IV ONE ×2 (20:27→20:30)
[2022-10-09] MEDS: enoxaparin 30mg/0.3ml syringe SUBCUT SCH (20:46)
[2022-10-09] MEDS: atorvastatin 10mg tablet PO SCH (20:46)
[2022-10-09 20:59] LABS: ALBUMIN 2.6 G/DL (3.4-5.0); ANION GAP 7 (8-16); BLOOD UREA NITROGEN 39 MG/DL (7-18); BUN/CREATININE RATIO 37.5 (10.0-20.0); CHLORIDE 106 MMOL/L (99-107); CREATININE 1.04 MG/DL (0.40-0.90); GLUCOSE 227 MG/DL (70-104); MAGNESIUM 2.2 MG/DL (1.5-2.4); SODIUM 139 MMOL/L (135-145); TOTAL CARBON DIOXIDE 25.7 MMOL/L (24-32); eCRCL 46 ML/MIN; eGFR 52 ML/MIN
[2022-10-09] MEDS: amiodarone/D5 360MG/200ML BAG 200 ML IV SCH (21:00)
--- NOTE | 2022-10-09 22:22 | NUR ---
dr noguera notified of rapid afib in the 190's for appx 3 min - vagal maneuver broke rhythm and amio ordered
[2022-10-10] VITALS (31 sets, daily range): BP systolic 116–147; BP diastolic 52–71; PULSE 65–96; RESP 14–30; TEMP 97.9–98.6; O2SAT 91–98
[2022-10-10] MEDS: HYDROcodone/acetaminophen 5mg/325mg tablet PO PRN ×3 (02:18→19:28)
[2022-10-10] MEDS: amiodarone/D5 360MG/200ML BAG 200 ML IV SCH ×4 (02:18→21:14)
[2022-10-10 02:40] LABS: BASOPHILS # (AUTO) 0.1 X10'3 (0-0.2); BASOPHILS % (AUTO) 0.6 % (0-1); EOSINOPHILS # (AUTO) 0.1 X10'3 (0-0.9); EOSINOPHILS % (AUTO) 0.6 % (0-6); HEMATOCRIT 37.3 % (35.0-45.0); HEMOGLOBIN 12.1 g/dl (12.0-16.0); LYMPHOCYTES # (AUTO) 1.2 X10'3 (1.1-4.8); LYMPHOCYTES % (AUTO) 7.9 % (21-51); MEAN CORPUSCULAR HGB CONC 32.4 g/dL (33.0-36.5); MEAN CORPUSCULAR VOLUME 92.5 FL (78-98); MONOCYTES # (AUTO) 0.9 X10'3 (0-0.9); MONOCYTES % (AUTO) 5.5 % (2-12); NEUTROPHILS # (AUTO) 13.4 X10'3 (1.8-7.7); NEUTROPHILS % (AUTO) 85.4 % (42-75); PLATELET COUNT 227 X10'3 (140-440); RED BLOOD COUNT 4.03 X10'6 (4.20-5.60); RED CELL DISTRIBUTION WIDTH 13.3 % (11.5-14.5); WHITE BLOOD COUNT 15.7 X10'3 (4.5-11.0)
[2022-10-10 02:50] LABS: ALBUMIN 2.8 G/DL (3.4-5.0); ANION GAP 4 (8-16); BLOOD UREA NITROGEN 32 MG/DL (7-18); BUN/CREATININE RATIO 37.6 (10.0-20.0); CALCIUM 8.3 MG/DL (8.5-10.1); CHLORIDE 108 MMOL/L (99-107); CREATININE 0.85 MG/DL (0.40-0.90); GLUCOSE 149 MG/DL (70-104); POTASSIUM 4.8 MMOL/L (3.5-5.1); SODIUM 141 MMOL/L (135-145); TOTAL CARBON DIOXIDE 28.8 MMOL/L (24-32); eCRCL 56 ML/MIN; eGFR 66 ML/MIN
[2022-10-10] MEDS: ipratropium/albuterol 3ml nebule NEB SCH ×4 (02:56→21:05)
[2022-10-10 06:26] LABS: ABG BASE EXCESS -2.7 mmol/L (-2.0-2.0); ABG HCO3 20.7 mmol/L (22.0-26.0); ABG OXYGEN SATURATION 95.9 % (94-97); ABG PCO2 (T) 32.6 mmHg (32.0-45.0); ABG PH (T) 7.421 (7.350-7.450); ABG PO2 (T) 76.9 mmHg (75.0-100.0); FCOHb 0.5 % (0.0-3.9); FHHb 4.1 % (0.0-5.0); FMetHb 0.3 % (0.0-1.5); FO2Hb 95.1 % (94-97); MODE ROOM AIR; TOTAL HEMOGLOBIN 14.9 G/dl (12.0-16.0)
[2022-10-10 06:29] LABS: ACT @ 1.70 U 292 SEC (193-297); ACT @ 2.84 U 402 SEC (260-420); BASELINE ACT 165 SEC (101-148); PATIENT WEIGHT 91.0k KG
--- NOTE | 2022-10-10 07:06 | NUR ---
Patient in room CICU 2014. I have received report from Lexis DUMONT and had the opportunity to ask questions and assume patient care.
[2022-10-10] MEDS: enoxaparin 30mg/0.3ml syringe SUBCUT SCH (08:19)
[2022-10-10] MEDS: metoprolol tartrate 12.5mg (1/2 tablet) PO SCH ×2 (08:19→20:57)
[2022-10-10] MEDS: aspirin 81mg tab.chew PO SCH (08:19)
[2022-10-10] MEDS: sennosides/docusate sodium tablet PO SCH ×2 (08:20→20:59)
[2022-10-10] MEDS: pantoprazole 40mg Tablet.DR PO SCH (08:20)
[2022-10-10] MEDS: insulin Lispro (HumaLOG) vial - multi-dose SQ SCH ×2 (09:16→19:27)
[2022-10-10] MEDS ORDERED: amiodarone 150mg/dext, iso-os 100 ML IV ONE (10:25)
--- NOTE | 2022-10-10 10:45 | NUR ---
patient went into rapid afib, tried vagal maneuvers, Dr. Hawley bedside ordered amio bolus to run over 30min
--- NOTE | 2022-10-10 10:50 | NUR ---
Initial: Pt admit for CAD, currently POD #5 s/p CABG x 2. PO intake fluctuates though overall pt eating well, documented with average 69% PO intake of meals since admit. Pt receiving an Ensure Enlive TID and documented with 100% PO intake of first two ONS. Overall pt meeting estimated nutrient needs. LBM 9/4 per EMR. Pt receiving routine bowel care and has additional PRN bowel care available. No further nutrition intervention implemented at this time. Will continue to follow and make recommendations as appropriate. Recommendations: 1. Advance to heart healthy diet as medically indicated; monitor need for CHO controlled diet 2. [place] patient's food preferences: soup/salad BIDLD, decaf tea/non-fat milk TIDWM 3. Ensure Enlive TIDWM; monitor need to decrease ONS frequency 4. Routine bowel care 5. Weekly scaled weights Addendum: 10/10/22 at [address] Amended: Links added.
[2022-10-10] MEDS ORDERED: ondansetron 4mg rapidly disintigrating tab PO PRN (13:08)
--- NOTE | 2022-10-10 13:25 | NUR ---
Problems reprioritized. Patient report given, questions answered & plan of care reviewed with Edis telephone answering service operator floor, reviewed labs and drips.
[2022-10-10] MEDS: lactose-reduced food (Ensure Enlive) - 237ml bottle PO SCH (18:00)
--- NOTE | 2022-10-10 18:00 | NUR ---
Patient in room PCU 3020. I have received report from Edis DUMONT and had the opportunity to ask questions and assume patient care.
--- NOTE | 2022-10-10 18:30 | NUR ---
Problems reprioritized. Patient report given, questions answered & plan of care reviewed with Marilia. Addendum: 10/10/22 at 1831 by Edis Yung RN Amended: Links added.
--- NOTE | 2022-10-10 20:33 | NUR ---
PAGED DR. WATSON FOR MAIRA TADEO: CAN WE GET TRAMADOL FOR THIS PT PLEASE? SHE HAS NORCO 5 BUT NOT CONTROLLING THE PAIN. THANK YOU [facility] [id number]
[2022-10-10] MEDS: atorvastatin 10mg tablet PO SCH (20:57)
[2022-10-10] MEDS: apixaban 5mg tablet PO SCH (20:59)
[2022-10-10] MEDS: traMADol 50MG tablet PO PRN (21:18)
[2022-10-11] VITALS (19 sets, daily range): BP systolic 107–148; BP diastolic 50–74; PULSE 68–177; RESP 12–24; TEMP 98–98.6; O2SAT 93–97
[2022-10-11] MEDS: ipratropium/albuterol 3ml nebule NEB SCH ×3 (03:00→14:15)
[2022-10-11] MEDS: amiodarone/D5 360MG/200ML BAG 200 ML IV SCH ×2 (03:40→20:20)
[2022-10-11] MEDS: traMADol 50MG tablet PO PRN (03:40)
[2022-10-11] MEDS: HYDROcodone/acetaminophen 5mg/325mg tablet PO PRN ×3 (05:20→21:00)
[2022-10-11 06:13] LABS: BASOPHILS % (AUTO) 0.2 % (0-1); EOSINOPHILS # (AUTO) 0.4 X10'3 (0-0.9); EOSINOPHILS % (AUTO) 4.1 % (0-6); HEMATOCRIT 35.6 % (35.0-45.0); HEMOGLOBIN 11.8 g/dl (12.0-16.0); LYMPHOCYTES # (AUTO) 1.2 X10'3 (1.1-4.8); LYMPHOCYTES % (AUTO) 11.1 % (21-51); MEAN CORPUSCULAR HEMOGLOBIN 30.2 PG (27.0-31.0); MEAN CORPUSCULAR VOLUME 91.7 FL (78-98); MEAN PLATELET VOLUME 8.8 FL (7.4-10.4); MONOCYTES # (AUTO) 0.9 X10'3 (0-0.9); MONOCYTES % (AUTO) 8.6 % (2-12); NEUTROPHILS # (AUTO) 8.3 X10'3 (1.8-7.7); PLATELET COUNT 249 X10'3 (140-440); RED BLOOD COUNT 3.89 X10'6 (4.20-5.60); RED CELL DISTRIBUTION WIDTH 13.1 % (11.5-14.5); WHITE BLOOD COUNT 10.9 X10'3 (4.5-11.0)
--- NOTE | 2022-10-11 06:15 | NUR ---
Problems reprioritized. Patient report given, questions answered & plan of care reviewed with RHONDA DUMONT.
[2022-10-11 06:17] LABS: ALBUMIN 2.5 G/DL (3.4-5.0); ANION GAP 6 (8-16); BLOOD UREA NITROGEN 25 MG/DL (7-18); BUN/CREATININE RATIO 32.1 (10.0-20.0); CALCIUM 8.5 MG/DL (8.5-10.1); CHLORIDE 105 MMOL/L (99-107); CREATININE 0.78 MG/DL (0.40-0.90); GLUCOSE 141 MG/DL (70-104); POTASSIUM 4.6 MMOL/L (3.5-5.1); SODIUM 139 MMOL/L (135-145); TOTAL CARBON DIOXIDE 27.7 MMOL/L (24-32); eCRCL 61 ML/MIN; eGFR 73 ML/MIN
--- NOTE | 2022-10-11 07:22 | NUR ---
Patient in room PCU 3020. I have received report from Marilia DUMONT and had the opportunity to ask questions and assume patient care.
[2022-10-11] MEDS: apixaban 5mg tablet PO SCH ×2 (07:54→19:18)
[2022-10-11] MEDS: aspirin 81mg tab.chew PO SCH (07:54)
[2022-10-11] MEDS: sennosides/docusate sodium tablet PO SCH ×2 (07:55→20:00)
[2022-10-11] MEDS: pantoprazole 40mg Tablet.DR PO SCH (07:55)
[2022-10-11] MEDS: metoprolol tartrate 12.5mg (1/2 tablet) PO SCH ×2 (07:56→20:50)
[2022-10-11] MEDS: lactose-reduced food (Ensure Enlive) - 237ml bottle PO SCH ×3 (08:00→18:56)
[2022-10-11] MEDS ORDERED: amiodarone 200mg tablet PO SCH (08:00)
--- NOTE | 2022-10-11 17:00 | NUR ---
pt had 10 beats of V tach with heart rate in the 180s while getting to the bed side commode.Per agent telegrapher report ,pt is on and off afib with heart rate between the 90s and 180s. MD was notified and He ordered metoprolol 25mg start, amiodarone drip and to transfer pt to ICU. Pt was transferred to ICU around 2029 with her belongings.Bed side report given to Dave the ICU primary nurse.
[2022-10-11 17:45] LABS: ALANINE AMINOTRANSFERASE 33 U/L (12-78); ALBUMIN 2.5 G/DL (3.4-5.0); ALBUMIN/GLOBULIN RATIO 0.9 (1.1-1.5); ALKALINE PHOSPHATASE 48 IU/L (46-116); ANION GAP 5 (8-16); ASPARTATE AMINO TRANSFERASE 20 U/L (10-37); BILIRUBIN,TOTAL 0.2 MG/DL (0.1-1.0); BLOOD UREA NITROGEN 23 MG/DL (7-18); BUN/CREATININE RATIO 30.7 (10.0-20.0); CALCIUM 8.6 MG/DL (8.5-10.1); CHLORIDE 104 MMOL/L (99-107); CREATININE 0.75 MG/DL (0.40-0.90); GLUCOSE 191 MG/DL (70-104); MAGNESIUM 2.1 MG/DL (1.5-2.4); POTASSIUM 4.7 MMOL/L (3.5-5.1); SODIUM 137 MMOL/L (135-145); TOTAL CARBON DIOXIDE 27.8 MMOL/L (24-32); TOTAL PROTEIN 5.4 G/DL (6.4-8.2); eCRCL 63 ML/MIN; eGFR 76 ML/MIN
--- NOTE | 2022-10-11 18:58 | NUR ---
Problems reprioritized. Patient report given, questions answered & plan of care reviewed with Clare RN, patient stable at transfer of care..
[2022-10-11] MEDS ORDERED: amiodarone/D5 360MG/200ML BAG 200 ML IV SCH (19:15)
[2022-10-11] MEDS ORDERED: amiodarone 150mg/dext, iso-os 100 ML IV ONE (19:15)
[2022-10-11] MEDS ORDERED: metoprolol tartrate 25mg tablet PO ONE (19:15)
[2022-10-11] MEDS: insulin Lispro (HumaLOG) vial - multi-dose SQ SCH ×2 (19:43→21:34)
[2022-10-11] MEDS: atorvastatin 10mg tablet PO SCH (21:27)
[2022-10-12] VITALS (28 sets, daily range): BP systolic 93–131; BP diastolic 48–67; PULSE 67–94; RESP 13–23; O2SAT 90–98
[2022-10-12] MEDS: amiodarone/D5 360MG/200ML BAG 200 ML IV SCH (01:23)
[2022-10-12] MEDS: HYDROcodone/acetaminophen 5mg/325mg tablet PO PRN ×3 (05:30→17:28)
[2022-10-12 06:05] LABS: ALBUMIN 2.4 G/DL (3.4-5.0); ANION GAP 1 (8-16); BLOOD UREA NITROGEN 17 MG/DL (7-18); BUN/CREATININE RATIO 22.1 (10.0-20.0); CHLORIDE 103 MMOL/L (99-107); CREATININE 0.77 MG/DL (0.40-0.90); GLUCOSE 148 MG/DL (70-104); POTASSIUM 4.7 MMOL/L (3.5-5.1); SODIUM 138 MMOL/L (135-145); TOTAL CARBON DIOXIDE 34.1 MMOL/L (24-32); eCRCL 62 ML/MIN; eGFR 74 ML/MIN
[2022-10-12 06:06] LABS: BASOPHILS % (AUTO) 0.4 % (0-1); EOSINOPHILS # (AUTO) 0.4 X10'3 (0-0.9); HEMATOCRIT 34.7 % (35.0-45.0); HEMOGLOBIN 11.8 g/dl (12.0-16.0); LYMPHOCYTES # (AUTO) 0.8 X10'3 (1.1-4.8); LYMPHOCYTES % (AUTO) 8.5 % (21-51); MEAN CORPUSCULAR HEMOGLOBIN 31.1 PG (27.0-31.0); MEAN CORPUSCULAR VOLUME 91.5 FL (78-98); MEAN PLATELET VOLUME 8.6 FL (7.4-10.4); MONOCYTES # (AUTO) 0.8 X10'3 (0-0.9); MONOCYTES % (AUTO) 8.4 % (2-12); NEUTROPHILS # (AUTO) 7.5 X10'3 (1.8-7.7); NEUTROPHILS % (AUTO) 78.7 % (42-75); PLATELET COUNT 232 X10'3 (140-440); RED BLOOD COUNT 3.79 X10'6 (4.20-5.60); RED CELL DISTRIBUTION WIDTH 12.9 % (11.5-14.5); WHITE BLOOD COUNT 9.5 X10'3 (4.5-11.0)
--- NOTE | 2022-10-12 06:30 | NUR ---
Patient in room CICU 2008. I have received report from Dave DUMONT with Kera DUMONT who is orienting to CC and had the opportunity to ask questions and assume patient care.
[2022-10-12] MEDS: pantoprazole 40mg Tablet.DR PO SCH (07:02)
--- NOTE | 2022-10-12 07:08 | NUR ---
Patient in room CICU 2007. I have received report from JULIA Acosta and had the opportunity to ask questions and assume patient care.
[2022-10-12] MEDS: aspirin 81mg tab.chew PO SCH (07:51)
[2022-10-12] MEDS: metoprolol tartrate 12.5mg (1/2 tablet) PO SCH ×2 (07:53→07:58)
[2022-10-12] MEDS: lactose-reduced food (Ensure Enlive) - 237ml bottle PO SCH ×3 (08:00→17:39)
--- NOTE | 2022-10-12 08:06 | NUR ---
MD VISIT Hawley in to see patient. New orders and ok to transfer back to PCU as bed available.
[2022-10-12] MEDS: amiodarone 200mg tablet PO SCH ×2 (08:15→20:36)
[2022-10-12] MEDS: apixaban 5mg tablet PO SCH ×2 (08:16→20:37)
[2022-10-12] MEDS: sennosides/docusate sodium tablet PO SCH ×2 (08:16→20:39)
[2022-10-12] MEDS: insulin Lispro (HumaLOG) vial - multi-dose SQ SCH ×2 (09:08→18:10)
--- NOTE | 2022-10-12 17:49 | NUR ---
Problems reprioritized. Patient report given, questions answered & plan of care reviewed with noc RN.
[2022-10-12] MEDS: traMADol 50MG tablet PO PRN (20:38)
[2022-10-12] MEDS: atorvastatin 10mg tablet PO SCH (20:38)
[2022-10-12] MEDS ORDERED: metoprolol tartrate 12.5mg (1/2 tablet) PO ONE (20:40)
[2022-10-13] VITALS (11 sets, daily range): BP systolic 95–135; BP diastolic 52–63; PULSE 71–84; RESP 16–20; O2SAT 90–94
[2022-10-13] MEDS: traMADol 50MG tablet PO PRN ×2 (03:19→12:10)
--- NOTE | 2022-10-13 06:15 | NUR ---
Problems reprioritized. Patient report given, questions answered & plan of care reviewed with Kera DUMONT and Stuart RN.
--- NOTE | 2022-10-13 06:28 | NUR ---
Patient in room CICU 2007. I have received report from JULIA Eugene and had the opportunity to ask questions and assume patient care.
[2022-10-13 06:53] LABS: ALBUMIN 2.3 G/DL (3.4-5.0); ANION GAP 3 (8-16); BLOOD UREA NITROGEN 20 MG/DL (7-18); BUN/CREATININE RATIO 24.1 (10.0-20.0); CALCIUM 8.7 MG/DL (8.5-10.1); CHLORIDE 103 MMOL/L (99-107); CREATININE 0.83 MG/DL (0.40-0.90); GLUCOSE 174 MG/DL (70-104); POTASSIUM 4.4 MMOL/L (3.5-5.1); SODIUM 137 MMOL/L (135-145); eCRCL 57 ML/MIN; eGFR 68 ML/MIN
[2022-10-13 07:05] LABS: BASOPHILS % (AUTO) 0.3 % (0-1); EOSINOPHILS # (AUTO) 0.3 X10'3 (0-0.9); EOSINOPHILS % (AUTO) 3.2 % (0-6); HEMATOCRIT 35.3 % (35.0-45.0); HEMOGLOBIN 11.7 g/dl (12.0-16.0); LYMPHOCYTES # (AUTO) 0.9 X10'3 (1.1-4.8); LYMPHOCYTES % (AUTO) 8.7 % (21-51); MEAN CORPUSCULAR HEMOGLOBIN 30.4 PG (27.0-31.0); MEAN CORPUSCULAR HGB CONC 33.2 g/dL (33.0-36.5); MEAN CORPUSCULAR VOLUME 91.7 FL (78-98); MEAN PLATELET VOLUME 8.5 FL (7.4-10.4); MONOCYTES # (AUTO) 0.7 X10'3 (0-0.9); MONOCYTES % (AUTO) 6.5 % (2-12); NEUTROPHILS # (AUTO) 8.6 X10'3 (1.8-7.7); NEUTROPHILS % (AUTO) 81.3 % (42-75); PLATELET COUNT 267 X10'3 (140-440); RED BLOOD COUNT 3.85 X10'6 (4.20-5.60); RED CELL DISTRIBUTION WIDTH 12.9 % (11.5-14.5); WHITE BLOOD COUNT 10.6 X10'3 (4.5-11.0)
[2022-10-13] MEDS: pantoprazole 40mg Tablet.DR PO SCH (07:36)
[2022-10-13] MEDS: aspirin 81mg tab.chew PO SCH (08:02)
[2022-10-13] MEDS: metoprolol tartrate 12.5mg (1/2 tablet) PO SCH (08:04)
[2022-10-13] MEDS: apixaban 5mg tablet PO SCH (08:04)
[2022-10-13] MEDS: amiodarone 200mg tablet PO SCH (08:04)
[2022-10-13] MEDS: sennosides/docusate sodium tablet PO SCH (08:04)
[2022-10-13] MEDS: lactose-reduced food (Ensure Enlive) - 237ml bottle PO SCH ×2 (08:05→13:29)
[2022-10-13] MEDS: insulin Lispro (HumaLOG) vial - multi-dose SQ SCH ×2 (08:14→13:25)
--- NOTE | 2022-10-13 10:00 | NUR ---
Reviewed JULIA Cote's charting and agree with assessments
--- NOTE | 2022-10-13 15:17 | NUR ---
DISCHARGE patient has 1600 clam picker time for transport to [facility]. Report called to JULIA Milligan at [facility]. discharge patient planned.
--- NOTE | 2022-10-13 16:09 | NUR ---
dicsharge - prevana removed and island dressing attached to patient. site cleaned with chloraprep. sutures to chest tube sites clean. Saline lock to right AC left intact and discharged with patient per [facility] request. [facility] transport. VSS at discharge. all belongings with patient at discharge including cell phone and cord splicer. patient stable at discharge.
== END 2022-10-13 16:15 | DRG 235 ==
LOC: PAS IN 05:29 → CICU 2S 12:07 → PCU 3S 10-10 13:56 → CICU 2S 10-11 19:46
PROVIDERS: ADMIT Thoracic Surgery (Cardiothoracic Vascular Surgery); ATTEND Thoracic Surgery (Cardiothoracic Vascular Surgery)
PROC: 02100Z9 Bypass Coronary Artery, One Artery from Left Internal Mammary, Open Approach (ICD-10-PCS; 2022-10-06)
PROC: 06BQ4ZZ Excision of Left Saphenous Vein, Percutaneous Endoscopic Approach (ICD-10-PCS; 2022-10-06)
PROC: 02HV33Z Insertion of Infusion Device into Superior Vena Cava, Percutaneous Approach (ICD-10-PCS; 2022-10-06)
PROC: 03HY32Z Insertion of Monitoring Device into Upper Artery, Percutaneous Approach (ICD-10-PCS; 2022-10-06)
PROC: 5A1221Z Performance of Cardiac Output, Continuous (ICD-10-PCS; 2022-10-06)
PROC: 021009W Bypass Coronary Artery, One Artery from Aorta with Autologous Venous Tissue, Open Approach (ICD-10-PCS; principal; 2022-10-06 07:47)
PROC: 5A0935A Assistance with Respiratory Ventilation, Less than 24 Consecutive Hours, High Flow/Velocity Cannula (ICD-10-PCS; 2022-10-08)
PROC: 5A0935A Assistance with Respiratory Ventilation, Less than 24 Consecutive Hours, High Flow/Velocity Cannula (ICD-10-PCS; 2022-10-09)
PROC: 5A0935A Assistance with Respiratory Ventilation, Less than 24 Consecutive Hours, High Flow/Velocity Cannula (ICD-10-PCS; 2022-10-10)
DX: I25.10 Atherosclerotic heart disease of native coronary artery without angina pectoris (principal); J96.90 Respiratory failure, unspecified, unspecified whether with hypoxia or hypercapnia; J98.11 Atelectasis; I10 Essential (primary) hypertension; E11.9 Type 2 diabetes mellitus without complications; E66.9 Obesity, unspecified; M19.90 Unspecified osteoarthritis, unspecified site; E78.5 Hyperlipidemia, unspecified; I49.3 Ventricular premature depolarization; I48.91 Unspecified atrial fibrillation; F32.9 Major depressive disorder, single episode, unspecified; Z79.899 Other long term (current) drug therapy; Z91.09 Other allergy status, other than to drugs and biological substances
CPT/HCPCS: 0232T; 93312; 93325; 36415; 36600; 71045; 80048; 80053; 81003; 82330; 82435; 82803; 82947; 82948; 83036; 83735; 84100; 84132; 84295; 85007; 85018; 85025; 85347; 85384; 85610; 85730; 86885; 86900; 86901; 86920; 87070; 87081; 93005; 94002; 94010; 94640; 94664; 94668; 94760; 97110; 97116; 97161; 97530; A4615; A4618; A4620; A6213; A6222; A6258; A6402; A6449; A7000; A7048; C1751; G0378; J0131; J0171; J0282; J0690; J1644; J1650; J1815; J1885; J1940; J2060; J2150; J2250; J2270; J2704; J2720; J2930; J3370; J3480; J3490; J7030; J7040; J7050; J7120; P9045; P9047

== ENCOUNTER 2023-05-03 10:52 | Observation (INO) | payer MEDICARE, OTHER ==
[2023-04-27 15:28] LABS: BASOPHILS # (AUTO) 0.1 X10'3 (0-0.2); BASOPHILS % (AUTO) 1.4 % (0-1); EOSINOPHILS # (AUTO) 0.3 X10'3 (0-0.9); EOSINOPHILS % (AUTO) 3.9 % (0-6); LYMPHOCYTES # (AUTO) 1.4 X10'3 (1.1-4.8); LYMPHOCYTES % (AUTO) 19.3 % (21-51); MEAN CORPUSCULAR HGB CONC 33.3 g/dL (33.0-36.5); MEAN CORPUSCULAR VOLUME 90.2 FL (78-98); MEAN PLATELET VOLUME 8.2 FL (7.4-10.4); MONOCYTES # (AUTO) 0.6 X10'3 (0-0.9); MONOCYTES % (AUTO) 8.6 % (2-12); NEUTROPHILS # (AUTO) 4.9 X10'3 (1.8-7.7); NEUTROPHILS % (AUTO) 66.8 % (42-75); PRE OP HEMOGLOBIN 13.6 g/dL (12.0-16.0); PRE OP PLATELET COUNT 249 X10'3 (140-440); PRE OP WHITE BLOOD COUNT 7.3 10'3 (4.8-10.8); RED BLOOD COUNT 4.55 X10'6 (4.20-5.60); RED CELL DISTRIBUTION WIDTH 14.2 % (11.5-14.5)
[2023-04-27 15:30] LABS: ALBUMIN 3.2 G/DL (3.4-5.0); ALKALINE PHOSPHATASE 71 IU/L (46-116); BLOOD UREA NITROGEN 21 MG/DL (7-18); BUN/CREATININE RATIO 19.1 (10.0-20.0); CALCIUM 8.6 MG/DL (8.5-10.1); CHLORIDE 110 MMOL/L (99-107); PRE OP ALT 27 U/L (30-65); PRE OP ANION GAP 7 (8-16); PRE OP AST 18 U/L (10-37); PRE OP BILIRUB, TOTAL 0.3 MG/DL (0.0-1.0); PRE OP GLUCOSE 114 MG/DL (70-104); PRE OP SODIUM 146 MMOL/L (135-145); TOTAL CARBON DIOXIDE 29.3 MMOL/L (24-32); TOTAL PROTEIN 6.5 G/DL (6.4-8.2); eGFR 49 ML/MIN
[~2023-05-03] VITALS: Ht 167.6 cm; Wt 86.0 kg
[2023-05-03] VITALS (17 sets, daily range): BP systolic 123–163; BP diastolic 45–84; PULSE 61–96; RESP 12–20; TEMP 97.4–98.8; O2SAT 62–99
[2023-05-03] MEDS: ringers solution, lacted 1,000 ML IV SCH ×2 (05:00→14:20)
[2023-05-03] MEDS: famotidine 20mg tablet PO ONE (05:30)
[2023-05-03] MEDS: albuterol 2.5 MG/3 ML nebule NEB ONE (05:30)
[2023-05-03] MEDS: cefazolin 2gm/D5W 100mL 100 ML IV ONE (05:30)
[2023-05-03] MEDS: DOCUMENT DATE & TIME OF BETA-BLOCKER PO ONE (05:30)
[~2023-05-03 10:52] MED LIST changes: -ACET-1025 PO; -AMLO10TA13 PO; +ASHWAGANDA PO; +ASPI81TA52 PO; +ATOR20TA66 PO; +BERBERINE PO; +CALCIUM PO; -ERGO400C PO; +HOLY BASIL; +IBUPROFEN; -IRON PO; +IRON SUPPLEMENT; -LOVA20TA2 PO; -MAGN250T11 PO; +METO25TA6 PO; -MULT-620 PO; -OMEG100037 PO; -OSC500T PO; +PANT40TA54 PO; +QUERCETIN; +RECLAST IV; +TYLENOL; +UBID100C16 PO; +VITAMIN B; +VITAMIN D3; +ZINC; -ZOLE5INF7 IV; -ringers solution, lacted 1,000 ML IV SCH
[2023-05-03] MEDS ORDERED: sevoflurane 250ml liquid IH ONE (13:11)
[2023-05-03] MEDS ORDERED: midazolam 1 mg/ML 2ml injection ONE (13:18)
[2023-05-03] MEDS ORDERED: fentaNYL /PF 50mcg/ml 5ml ampule ONE (13:19)
[2023-05-03] MEDS: BUPIVAcaine 2.5mg/ml inj 50ml vial (contains preservative) ONE (13:41)
[2023-05-03] MEDS: LIDOcaine 1% 30ml preserv. free vial ONE (13:42)
[2023-05-03] MEDS ORDERED: ondansetron/PF 4mg/2ml inj IV PRN ×2 (14:20→16:05)
[2023-05-03] MEDS ORDERED: morphine 4 MG/ML inj SYRINge IV PRN (14:20)
[2023-05-03] MEDS ORDERED: morphine 2 MG/ML inj. syringe IV PRN (14:20)
[2023-05-03] MEDS ORDERED: meperidine/PF 25mg/ml syringe IV PRN ×2 (14:20)
[2023-05-03] MEDS ORDERED: proCHLORperazine 10 MG/2 ml inj IV PRN (14:20)
[2023-05-03] MEDS ORDERED: dexamethasone sod phosphate 4mg/ml inj. ONE (15:39)
[2023-05-03] MEDS ORDERED: rocuronium 10mg/ml inj IV ONE (15:39)
[2023-05-03] MEDS ORDERED: ondansetron/PF 4mg/2ml inj ONE (15:39)
[2023-05-03] MEDS ORDERED: glycopyrrolate 0.2mg/ml inj ONE (15:39)
[2023-05-03] MEDS ORDERED: neostigmine methylsulfate 1 MG/ML 10ml vial ONE (15:39)
[2023-05-03] MEDS ORDERED: propofol inj 20 ML IV ONE (15:39)
[2023-05-03] MEDS: normal saline 1000ml 1,000 ML IV SCH (16:05)
[2023-05-03] MEDS ORDERED: albuterol 2.5 MG/3 ML nebule NEB PRN (16:05)
[2023-05-03] MEDS ORDERED: fluticasone nasal spray 16GM bottle NS PRN (16:05)
[2023-05-03] MEDS ORDERED: naloxone 0.4 mg/ml inj IV PRN (16:05)
[2023-05-03] MEDS: meperidine/PF 25mg/ml syringe IV PRN (16:22)
[2023-05-03] MEDS: HYDROmorph/NS 0.2 mg/ml PCA 100 ML IV SCH (17:00)
[2023-05-03] MEDS ORDERED: PCA WASTE DOCUMENTATION 1 MG ML MC SCH (18:15)
[2023-05-03] MEDS: potassium CL 20mEq in D5-1/2NS 1,000 ML IV SCH (19:24)
[2023-05-03] MEDS: atorvastatin 20mg tablet PO SCH (19:24)
[2023-05-03] MEDS: metoprolol tartrate 25mg tablet PO SCH (19:25)
[2023-05-03] MEDS: losartan 50mg tablet PO SCH (19:25)
[2023-05-03] MEDS: aspirin 81mg, enteric-coated 1 TAB TABLET.DR PO SCH (19:26)
[2023-05-03] MEDS ORDERED: non-formulary drug (Losartan/Hydrochlorothiazide (Losartan-Hctz 100-12.5 Mg Tab) 1 TAB) PO SCH (21:00)
[2023-05-04] VITALS (10 sets, daily range): BP systolic 102–147; BP diastolic 45–76; PULSE 60–76; RESP 14–18; TEMP 97.9–98.7; O2SAT 90–95
[2023-05-04] MEDS: HYDROchlorothiazide 12.5mg capsule PO SCH (07:15)
[2023-05-04] MEDS ORDERED: oxyCODONE/APAP 5-325mg tablet PO PRN (08:45)
[2023-05-04] MEDS ORDERED: PER5325T PO (08:54)
[2023-05-04] MEDS: PCA WASTE DOCUMENTATION 1 MG ML MC PRN (10:49)
[2023-05-04] MEDS: oxyCODONE/APAP 5-325mg tablet PO ONE (12:29)
== END 2023-05-04 13:50 | disposition home or self-care (01) ==
LOC: PAS 10:52 → EDSTATUS 12:45 → PAS IN 16:04 → SUR 3N 18:07
PROVIDERS: ADMIT Surgery; ATTEND Surgery
DX: K44.9 Diaphragmatic hernia without obstruction or gangrene (principal); I10 Essential (primary) hypertension; E78.5 Hyperlipidemia, unspecified; I48.91 Unspecified atrial fibrillation; K21.9 Gastro-esophageal reflux disease without esophagitis; E11.9 Type 2 diabetes mellitus without complications; F32.A Depression, unspecified; Z79.899 Other long term (current) drug therapy
CPT/HCPCS: 36415; 43282; 71045; 80053; 82948; 83036; 85025; 93005; 96365; 96366; 96375; 96376; C1781; G0378; J0131; J0690; J1100; J1170; J2175; J2250; J2405; J2704; J2710; J3010; J3480; J3490; J7120; A4615; A4618; A6212; A6253